=== PATIENT | female | born 1935 | race Caucasian/White ===

== ENCOUNTER 2018-07-19 21:29 | Inpatient (IN) | payer MEDICARE, MEDICAID ==
[~2018-07-19] VITALS: Ht 165.1 cm; Wt 86.6 kg
[~2018-07-19 21:29] MED LIST: ACET-2178 PO; ALEN70TA3 PO; AMLO2.5T45 PO; BISA10SU97 PR; FERR-63 PO; HYDR-523 PO; LAMO150T PO; PRIM50TA31 PO
[2018-07-19] MEDS ORDERED: LEVETIRACETAM 1000MG/100ML 100 ML IV ONE (22:00)
[2018-07-19] MEDS ORDERED: PHENOBARBITAL SODIUM 65MG/ML 1ML IV ONE (22:00)
[2018-07-19 23:22] LABS: BASOPHILS % 0.9 % (0.0-2.0); HEMATOCRIT. 41.7 % (36.0-48.0); HEMOGLOBIN. 14.1 g/dL (12.0-16.0); LYMPHOCYTES % 13.8 % (20.0-50.0); MEAN CORPUSCULAR HEMOGLOBIN 31.1 pg (28.0-32.0); MEAN CORPUSCULAR VOLUME 92.1 fL (81.0-99.0); MEAN PLATELET VOLUME 7.5 fl (7.4-10.4); MONOCYTES % 8.2 % (2.0-8.0); NEUTROPHILS % 74.1 % (40.0-76.0); PLATELET 210 x1000/uL (130-400); RED BLOOD CELL COUNT 4.53 mill/uL (4.2-5.4); RED CELL DISTRIBUTION WIDTH 14.8 % (11.6-14.6)
[2018-07-19 23:26] LABS: CHLORIDE 105 mEq/L (98-107)
[2018-07-19 23:30] LABS: ETHANOL BLOOD < 10 mg/dL
[2018-07-19 23:35] LABS: PHENOBARBITAL 13.4 ug/mL (15.0-40.0)
[2018-07-20] MEDS ORDERED: ACETAMINOPHEN 325MG TABLET PO ONE
[2018-07-20] MEDS ORDERED: DILTIAZEM HCL 5MG/ML 5ML VIAL IV ONE (00:30)
[2018-07-20] MEDS ORDERED: ASPIRIN 81MG TABLET PO ONE (00:30)
[2018-07-20] MEDS ORDERED: DILTIAZEM HCL 30MG TABLET PO ONE (00:30)
[2018-07-20] MEDS ORDERED: CALCIUM GLUCONATE 1,000 MG in DEXTROSE 5% WATER 50 ML IV ONE (00:45)
[2018-07-20 03:45] VITALS: BP 132/62
[2018-07-20] MEDS ORDERED: ACETAMINOPHEN 325MG TABLET PO PRN (06:00)
[2018-07-20] MEDS ORDERED: LORAZEPAM 1MG TABLET PO PRN (06:00)
[2018-07-20 08:00] VITALS: BP 139/77
[2018-07-20] MEDS ORDERED: PRIMIDONE 50MG TABLET PO SCH (09:15)
[2018-07-20] MEDS ORDERED: LAMOTRIGINE 150MG TABLET PO PRN (09:15)
[2018-07-20] MEDS ORDERED: CLONIDINE 0.1MG TABLET PO PRN (09:15)
[2018-07-20] MEDS ORDERED: IPRATROPIUM/ALBUTEROL 0.5-3(2.5)MG/3ML NEB INH PRN (09:15)
[2018-07-20] MEDS ORDERED: DOCUSATE SODIUM 100MG CAPSULE PO PRN (09:15)
[2018-07-20] MEDS ORDERED: HYDROCODONE/ACETAMINOPHEN 5/325MG TABLET PO PRN (09:45)
[2018-07-20] MEDS ORDERED: MORPHINE SULFATE 4 MG/ML CPJ (NOT FOR IM USE) IV PRN (10:00)
[2018-07-20] MEDS ORDERED: AMLODIPINE 5MG TABLET PO SCH (10:00)
[2018-07-20] MEDS ORDERED: LAMOTRIGINE 100MG TABLET PO SCH (10:00)
[2018-07-20] MEDS ORDERED: LEVETIRACETAM 250MG TABLET PO SCH (10:00)
[2018-07-20] MEDS: POTASSIUM CHLORIDE 20MEQ TABLET SR PO SCH (10:46)
[2018-07-20] MEDS: OMEPRAZOLE 20MG CAPSULE EXTENDED RELEASE PO SCH (10:47)
[2018-07-20] MEDS: FUROSEMIDE 40MG TABLET PO SCH (10:48)
[2018-07-20] MEDS: MULTIVITAMINS,THER W-MINERALS TABLET PO SCH (10:49)
[2018-07-20] MEDS: CHOLECALCIFEROL (D3) 1000 UNIT TABLET PO SCH (10:49)
[2018-07-20] MEDS: PRIMIDONE 50MG TABLET PO SCH ×2 (10:49→21:59)
[2018-07-20 12:00] VITALS: BP 123/60
[2018-07-20] MEDS: CALCIUM CARBONATE/VITAMIN D3 500MG TABLET PO SCH ×2 (13:42→18:00)
[2018-07-20] MEDS: DILTIAZEM HCL 60MG TABLET PO SCH ×2 (13:43→22:00)
[2018-07-20] MEDS: RALOXIFENE HCL 60 MG PO SCH (13:43)
[2018-07-20 16:00] VITALS: BP 119/70
[2018-07-20] MEDS ORDERED: RIVAROXABAN 15 MG TABLET PO SCH (17:00)
[2018-07-20] MEDS: FERROUS SULFATE 325MG TABLET PO SCH (18:00)
[2018-07-20] MEDS: RIVAROXABAN 20 MG TABLET PO SCH (18:00)
[2018-07-20] MEDS: DIGOXIN 500MCG/2ML AMP IV SCH (18:04)
[2018-07-20 20:00] VITALS: BP 132/70
[2018-07-20] MEDS: LEVETIRACETAM 500MG TABLET PO SCH (21:58)
[2018-07-20] MEDS: DONEPEZIL HCL 5MG TABLET PO SCH (21:59)
[2018-07-20] MEDS: LAMOTRIGINE 100MG TABLET PO SCH (21:59)
[2018-07-21] VITALS: BP 153/72
[2018-07-21 04:00] VITALS: BP 150/79
[2018-07-21] MEDS: OMEPRAZOLE 20MG CAPSULE EXTENDED RELEASE PO SCH (06:34)
[2018-07-21] MEDS: DILTIAZEM HCL 60MG TABLET PO SCH ×2 (06:34→18:11)
[2018-07-21] MEDS: FUROSEMIDE 40MG TABLET PO SCH (06:37)
[2018-07-21 06:38] LABS: BASOPHILS % 0.6 % (0.0-2.0); EOSINOPHILS % 4.3 % (0.0-5.0); HEMATOCRIT. 40.7 % (36.0-48.0); HEMOGLOBIN. 13.7 g/dL (12.0-16.0); MEAN CORPUSCULAR VOLUME 92.3 fL (81.0-99.0); MEAN PLATELET VOLUME 7.8 fl (7.4-10.4); MONOCYTES % 8.9 % (2.0-8.0); NEUTROPHILS % 72.2 % (40.0-76.0); PLATELET 210 x1000/uL (130-400); RED BLOOD CELL COUNT 4.41 mill/uL (4.2-5.4)
[2018-07-21] MEDS ORDERED: ALENDRONATE SODIUM 35MG TABLET PO SCH (06:45)
[2018-07-21 08:00] VITALS: BP 105/50
[2018-07-21 08:12] LABS: CHLORIDE 104 mEq/L (98-107)
[2018-07-21 08:23] LABS: PHOSPHORUS 3.4 mg/dL (2.5-4.9)
[2018-07-21 08:24] LABS: LDL CHOLESTEROL 120 mg/dL (5-100)
[2018-07-21 08:27] LABS: HDL CHOLESTEROL 70 mg/dL (40-59)
[2018-07-21] MEDS: LAMOTRIGINE 100MG TABLET PO SCH ×2 (08:43→21:24)
[2018-07-21] MEDS: LEVETIRACETAM 500MG TABLET PO SCH ×2 (08:43→21:09)
[2018-07-21] MEDS: POTASSIUM CHLORIDE 20MEQ TABLET SR PO SCH (08:43)
[2018-07-21] MEDS: CALCIUM CARBONATE/VITAMIN D3 500MG TABLET PO SCH ×3 (08:43→18:10)
[2018-07-21] MEDS: PRIMIDONE 50MG TABLET PO SCH ×2 (08:44→21:09)
[2018-07-21] MEDS: MULTIVITAMINS,THER W-MINERALS TABLET PO SCH (08:44)
[2018-07-21] MEDS: CHOLECALCIFEROL (D3) 1000 UNIT TABLET PO SCH (08:44)
[2018-07-21] MEDS ORDERED: FERROUS SULFATE 325MG TABLET PO SCH (09:00)
[2018-07-21] MEDS ORDERED: AMLODIPINE 2.5MG TABLET PO SCH (09:00)
[2018-07-21 12:00] VITALS: BP 130/64
[2018-07-21] MEDS: RALOXIFENE HCL 60 MG PO SCH (15:49)
[2018-07-21] MEDS: NYSTATIN POWDER 15GM TOP SCH ×2 (15:49→18:11)
[2018-07-21] MEDS: RIVAROXABAN 20 MG TABLET PO SCH (18:10)
[2018-07-21] MEDS: FERROUS SULFATE 325MG TABLET PO SCH (18:10)
[2018-07-21] MEDS: DIGOXIN 500MCG/2ML AMP IV SCH (18:11)
[2018-07-21 20:00] VITALS: BP 145/55
[2018-07-21] MEDS: DONEPEZIL HCL 5MG TABLET PO SCH (21:09)
[2018-07-21] MEDS ORDERED: PRIM50TA MT (22:35)
[2018-07-21] MEDS ORDERED: LAM15 MT (22:36)
[2018-07-21] MEDS ORDERED: DONE5TAB7 MT (22:41)
[2018-07-21] MEDS ORDERED: AMLO5TAB88 MT (22:41)
[2018-07-21] MEDS ORDERED: LORA2VIA34 IM ×2 (22:41→22:46)
[2018-07-21] MEDS ORDERED: RIVA20TA PO (23:04)
[2018-07-21] MEDS ORDERED: POTA20TA82 PO (23:04)
[2018-07-21] MEDS ORDERED: DOCU-138 PO (23:04)
[2018-07-21] MEDS ORDERED: CHOL100046 PO (23:04)
[2018-07-21] MEDS ORDERED: OMEP20CA10 PO (23:04)
[2018-07-21] MEDS ORDERED: MOM PO (23:04)
[2018-07-21] MEDS ORDERED: CALC-3 PO (23:04)
[2018-07-21] MEDS ORDERED: MULT-1146 PO (23:04)
[2018-07-21] MEDS ORDERED: LEVE750T4 PO (23:04)
[2018-07-21] MEDS ORDERED: FURO40TA5 PO (23:04)
[2018-07-21] MEDS ORDERED: EVIS60 PO (23:04)
[2018-07-22] VITALS: BP 102/51
[2018-07-22 04:00] VITALS: BP 112/69
[2018-07-22] MEDS: FUROSEMIDE 40MG TABLET PO SCH (05:56)
[2018-07-22] MEDS: DILTIAZEM HCL 60MG TABLET PO SCH ×5 (05:57→23:51)
[2018-07-22 06:09] LABS: BASOPHILS % 0.7 % (0.0-2.0); EOSINOPHILS % 3.3 % (0.0-5.0); HEMATOCRIT. 42.7 % (36.0-48.0); HEMOGLOBIN. 14.6 g/dL (12.0-16.0); LYMPHOCYTES % 11.8 % (20.0-50.0); MEAN CORPUSCULAR HEMOGLOBIN 31.3 pg (28.0-32.0); MEAN CORPUSCULAR VOLUME 91.8 fL (81.0-99.0); MEAN PLATELET VOLUME 8.1 fl (7.4-10.4); MONOCYTES % 10.6 % (2.0-8.0); NEUTROPHILS % 73.6 % (40.0-76.0); PLATELET 220 x1000/uL (130-400); RED BLOOD CELL COUNT 4.65 mill/uL (4.2-5.4); RED CELL DISTRIBUTION WIDTH 14.7 % (11.6-14.6)
[2018-07-22 07:37] LABS: CHLORIDE 103 mEq/L (98-107)
[2018-07-22] MEDS: MULTIVITAMINS,THER W-MINERALS TABLET PO SCH (11:05)
[2018-07-22] MEDS: LAMOTRIGINE 100MG TABLET PO SCH ×2 (11:05→21:22)
[2018-07-22] MEDS: CHOLECALCIFEROL (D3) 1000 UNIT TABLET PO SCH (11:05)
[2018-07-22] MEDS: LEVETIRACETAM 500MG TABLET PO SCH ×2 (11:05→21:23)
[2018-07-22] MEDS: RALOXIFENE HCL 60 MG PO SCH (11:05)
[2018-07-22] MEDS: FAMOTIDINE 20MG TABLET PO SCH (11:06)
[2018-07-22] MEDS: CALCIUM CARBONATE/VITAMIN D3 500MG TABLET PO SCH ×3 (11:06→18:10)
[2018-07-22] MEDS: POTASSIUM CHLORIDE 20MEQ TABLET SR PO SCH (11:06)
[2018-07-22] MEDS: NYSTATIN POWDER 15GM TOP SCH ×2 (11:11→18:11)
[2018-07-22] MEDS: PRIMIDONE 50MG TABLET PO SCH ×2 (11:27→21:23)
[2018-07-22 16:00] VITALS: BP 122/63
[2018-07-22] MEDS: FERROUS SULFATE 325MG TABLET PO SCH (18:10)
[2018-07-22] MEDS: RIVAROXABAN 20 MG TABLET PO SCH (18:10)
[2018-07-22] MEDS ORDERED: LAM15 MT (18:11)
[2018-07-22] MEDS: DIGOXIN 500MCG/2ML AMP IV SCH (18:11)
[2018-07-22] MEDS ORDERED: LEVE750T4 PO ×2 (18:11→22:36)
[2018-07-22] MEDS ORDERED: PRIM50TA MT (18:11)
[2018-07-22] MEDS ORDERED: DIGO250A8 PO (18:20)
[2018-07-22 20:00] VITALS: BP 132/57
[2018-07-22] MEDS: DONEPEZIL HCL 5MG TABLET PO SCH (21:23)
[2018-07-22] MEDS ORDERED: LAMO150T PO (22:34)
[2018-07-23] VITALS: BP 133/61
[2018-07-23 04:00] VITALS: BP 154/58
[2018-07-23 06:26] VITALS: BP_SYST 126; BP_SYST 154; BP_DIAS 55; BP_DIAS 58
[2018-07-23] MEDS: FUROSEMIDE 40MG TABLET PO SCH (06:37)
[2018-07-23] MEDS: DILTIAZEM HCL 60MG TABLET PO SCH ×3 (06:37→18:03)
[2018-07-23 08:00] VITALS: BP 95/44
[2018-07-23] MEDS: RALOXIFENE HCL 60 MG PO SCH (08:49)
[2018-07-23] MEDS: LEVETIRACETAM 500MG TABLET PO SCH (08:50)
[2018-07-23] MEDS: POTASSIUM CHLORIDE 20MEQ TABLET SR PO SCH (08:50)
[2018-07-23] MEDS: MULTIVITAMINS,THER W-MINERALS TABLET PO SCH (08:51)
[2018-07-23] MEDS: LAMOTRIGINE 100MG TABLET PO SCH (08:51)
[2018-07-23] MEDS: PRIMIDONE 50MG TABLET PO SCH (08:51)
[2018-07-23] MEDS: CHOLECALCIFEROL (D3) 1000 UNIT TABLET PO SCH (08:51)
[2018-07-23] MEDS: FAMOTIDINE 20MG TABLET PO SCH (08:51)
[2018-07-23] MEDS: CALCIUM CARBONATE/VITAMIN D3 500MG TABLET PO SCH ×3 (08:51→17:43)
[2018-07-23] MEDS: NYSTATIN POWDER 15GM TOP SCH ×3 (08:53→17:43)
[2018-07-23 12:00] VITALS: BP 99/51
[2018-07-23 16:00] VITALS: BP 126/55
[2018-07-23] MEDS: FERROUS SULFATE 325MG TABLET PO SCH (17:43)
[2018-07-23] MEDS: RIVAROXABAN 20 MG TABLET PO SCH (17:43)
[2018-07-23] MEDS ORDERED: DIGOXIN 125MCG TABLET PO SCH (18:00)
== END 2018-07-23 20:46 | DRG 101 ==
LOC: ER 21:39 → EDBEDREQTM 07-20 00:40 → 5WST 07-20 01:16 → EDBEDREQTM 07-20 01:21 → EDBEDREQ 07-20 01:21 → ENRESERV 07-20 02:06
PROVIDERS: ADMIT Family Medicine Adult Medicine; ATTEND Family Medicine Adult Medicine
DX: G40.909 Epilepsy, unspecified, not intractable, without status epilepticus (principal); I42.9 Cardiomyopathy, unspecified; I48.91 Unspecified atrial fibrillation; I11.0 Hypertensive heart disease with heart failure; I50.9 Heart failure, unspecified; I27.20 Pulmonary hypertension, unspecified; K21.9 Gastro-esophageal reflux disease without esophagitis; F03.90 Unspecified dementia, unspecified severity, without behavioral disturbance, psychotic disturbance, mood disturbance, and anxiety; E03.9 Hypothyroidism, unspecified; I07.1 Rheumatic tricuspid insufficiency; L81.6 Other disorders of diminished melanin formation; R32 Unspecified urinary incontinence; Z79.899 Other long term (current) drug therapy
CPT/HCPCS: 36415; 70551; 80048; 80061; 80184; 80320; 82542; 82550; 82553; 83735; 84100; 84134; 84439; 84443; 84481; 84484; 93005; 93306; 93970; 96365; 96367; 96375; 99285; A6261; J0610; J1160; J1953; J2560; J3490; J7060; A4315; G0480

== ENCOUNTER 2019-01-15 14:35 | Emergency (ER) | payer MEDICARE, MEDICAID ==
[~2019-01-15] VITALS: Ht 165.1 cm; Wt 90.0 kg
[~2019-01-15 14:35] MED LIST changes: -ACET-2178 PO; -AMLO2.5T45 PO; +AMLO5TAB88 MT; -BISA10SU97 PR; +CALC-3 PO; +CHOL100046 PO; +DIGO250A8 PO; +DOCU-138 PO; +DONE5TAB7 MT; +EVIS60 PO; +FURO40TA5 PO; +LAM15 MT; -LAMO150T PO; +LEVE750T4 PO; +LORA2VIA34 IM; +MOM PO; +MULT-1146 PO; +OMEP20CA5 PO; +POTA20TA82 PO; +PRIM50TA MT; -PRIM50TA31 PO; +RIVA20TA PO; +TOPUD PO
[2019-01-15 16:23] LABS: BASOPHILS % 0.9 % (0.0-2.0); EOSINOPHILS % 3.5 % (0.0-5.0); HEMATOCRIT. 42.3 % (36.0-48.0); HEMOGLOBIN. 14.3 g/dL (12.0-16.0); LYMPHOCYTES % 14.9 % (20.0-50.0); MEAN CORPUSCULAR HEMOGLOBIN 31.2 pg (28.0-32.0); MEAN CORPUSCULAR VOLUME 92.2 fL (81.0-99.0); MEAN PLATELET VOLUME 8.1 fl (7.4-10.4); MONOCYTES % 9.8 % (2.0-8.0); NEUTROPHILS % 70.9 % (40.0-76.0); PLATELET 219 x1000/uL (130-400); RED BLOOD CELL COUNT 4.59 mill/uL (4.2-5.4); RED CELL DISTRIBUTION WIDTH 13.8 % (11.6-14.6)
[2019-01-15 16:27] LABS: CHLORIDE 104 mEq/L (98-107)
[2019-01-15] MEDS ORDERED: CLONIDINE 0.1MG TABLET PO ONE (20:30)
[2019-01-15 22:21] VITALS: BP 152/77
== END 2019-01-15 22:29 | disposition home or self-care (01) ==
LOC: ER 14:43
DX: G40.909 Epilepsy, unspecified, not intractable, without status epilepticus (principal); K21.9 Gastro-esophageal reflux disease without esophagitis; I11.0 Hypertensive heart disease with heart failure; I50.9 Heart failure, unspecified; F03.90 Unspecified dementia, unspecified severity, without behavioral disturbance, psychotic disturbance, mood disturbance, and anxiety; E03.9 Hypothyroidism, unspecified; I48.91 Unspecified atrial fibrillation; Z79.01 Long term (current) use of anticoagulants; Z66 Do not resuscitate
CPT/HCPCS: 36415; 99283